=== PATIENT | male | born 1950 | race Caucasian/White ===

== ENCOUNTER 2019-02-09 17:15 | Inpatient (IN) | payer MEDICARE, MEDICAID ==
[~2019-02-09] VITALS: Ht 177.8 cm; Wt 89.8 kg
[2019-02-09] MEDS ORDERED: Magnesium 1GM/D5W 100ML PREMIX 200 ML IV ONE (17:31)
[2019-02-09 17:50] LABS: BASOPHILS # (AUTO) 0.1 /CMM (0.0-0.2); EOSINOPHILS % (AUTO) 1.7 % (0.0-6.0); HEMATOCRIT 44 % (39-51); HEMOGLOBIN 15.1 g/dL (13.5-17.5); LYMPHOCYTES # (AUTO) 2.5 /CMM (0.8-4.8); LYMPHOCYTES % (AUTO) 25.8 % (20.0-44.0); MEAN CORPUSCULAR HGB CONC 35 g/dl (31.0-36.0); MEAN CORPUSCULAR VOLUME 93 fL (80-96); MONOCYTES # (AUTO) 0.8 /CMM (0.1-1.30); MONOCYTES % (AUTO) 8.4 % (2.0-12.0); NEUTROPHILS # (AUTO) 6.1 /CMM (1.8-8.9); NEUTROPHILS % (AUTO) 63.1 % (43.0-81.0); PLATELET COUNT (AUTO) 248 /CMM (150-450); WHITE BLOOD COUNT (AUTO) 9.6 K/uL (4.3-11.0)
[2019-02-09] MEDS ORDERED: Magnesium 1GM/D5W 100ML PREMIX 100 ML IV ONE ×2 (17:50→17:53)
[2019-02-09] MEDS ORDERED: methylPREDNISolone SOD SUCC 125 MG/2ML VIAL ONE (17:51)
[2019-02-09] MEDS ORDERED: ALBUTEROL FS 2.5 MG/3 ML VIAL.NEB CONTNEB ONE ×2 (18:00→19:30)
[2019-02-09] MEDS ORDERED: ALBUTEROL FS 2.5 MG/3 ML VIAL.NEB ONE ×2 (18:00→19:32)
[2019-02-09] MEDS ORDERED: methylPREDNISolone SOD SUCC 125 MG/2ML VIAL IV ONE (18:00)
[2019-02-09] MEDS ORDERED: IPRATROPIUM NEB FS 0.5 MG/2.5 ML AMPUL.NEB NEB ONE (18:00)
[2019-02-09] MEDS ORDERED: IPRATROPIUM NEB FS 0.5 MG/2.5 ML AMPUL.NEB ONE (18:00)
[2019-02-09 18:01] LABS: CALCIUM, SERUM 9.1 mg/dL (8.5-10.1); CREATININE 1.2 mg/dL (0.6-1.3); POTASSIUM 4.2 mmol/L (3.5-5.1)
[2019-02-09 18:13] LABS: ALBUMIN 3.1 g/dL (3.4-5.0); BILIRUBIN,DIRECT 0.1 mg/dL (0.0-0.2); BILIRUBIN,TOTAL 0.3 mg/dL (0.2-1.0); TOTAL PROTEIN, SERUM 7.8 g/dL (6.4-8.2)
--- NOTE | 2019-02-09 18:24 | NUR ---
PT CAME IN C/O SOB,COUGH X4 DAYS. PT AAOX4,AMBULATORY, DENIES N/V, CONNECTED TO THE MONITOR. WILL CONTINUE TO MONITOR. PT MADE AWARE W THE PLAN OF CARE.
--- NOTE | 2019-02-09 19:06 | NUR ---
ER CENTRAL SUPPLY TECHNICIAN SPOKE TO MOSES SCHWARTZ REGARDING PT ADMISSION.
[2019-02-09] MEDS ORDERED: LEVOFLOXACIN 500 MG /D5W 100ML 100 ML IV ONE (19:25)
--- NOTE | 2019-02-09 19:28 | NUR ---
CALLED HOUSE SUP FOR [facility] BED
[2019-02-09] MEDS ORDERED: FUROSEMIDE 20 MG/2 ML VIAL IV ONE (19:30)
[2019-02-09] MEDS ORDERED: LEVOFLOXACIN 500 MG /D5W 100ML 500 MG/100 ML PIGGYBACK IV ONE (19:30)
--- NOTE | 2019-02-09 19:30 | NUR ---
Report given to ED RN for ashkan.
--- NOTE | 2019-02-09 20:00 | NUR ---
REPORT CALLED TO TELE 1 [facility]ER WILL TRANSPORT PT VIA ACLS PROTOCOL.
[2019-02-09] MEDS ORDERED: FUROSEMIDE 20 MG/2 ML VIAL ONE (20:05)
--- NOTE | 2019-02-09 20:09 | NUR ---
MOSES SCHWARTZ AT BEDSIDE TO HILDA BENAVIDES.
[2019-02-09 20:15] VITALS: BP 127/83
--- NOTE | 2019-02-09 20:15 | NUR ---
RN NOTE RECEIVED PATIENT FROM ER ON 2 L/MIN VIA NASAL CANULA, NO DISTRESS NOTED, DX COPD EXACERBATION, ON CONTINIOUS LEVAQUIN IV ATB FROM ER, NO PAIN OR DISCOMFORT NOTED, TALKED TO DAUGHTER IN LAW NARCISO, PER DAUGHTER IN LAW SHE WILL BRING MEDICATION LIST TOMORROW, LEFT AC 18 GAUGE NOTED, NO S/S OF INFECTION/INFILTRATION NOTED, SKIN IS INTACT, WILL CONTINUE TO MONITOR PATIENT
[2019-02-09] MEDS ORDERED: ACETAMINOPHEN 325 MG TABLET PO PRN (20:30)
[2019-02-09] MEDS ORDERED: MAG HYDROX/AL HYDROX/SIMETH 30 ML UDC PO PRN (20:30)
[2019-02-09] MEDS ORDERED: Z GUARD REMEDY 2 OZ OINT TP PRN (20:30)
[2019-02-09] MEDS ORDERED: HYDROCODONE/APAP 5/325MG 1 EACH TABLET PO PRN (20:30)
[2019-02-09] MEDS ORDERED: ONDANSETRON HCL/PF 4 MG/2 ML VIAL IVP PRN (20:30)
[2019-02-09] MEDS ORDERED: MAGNESIUM HYDROXIDE 30 ML UDC PO PRN (20:30)
[2019-02-09 21:07] LABS: LIPASE 134 U/L (73-393)
[2019-02-09] MEDS: ENOXAPARIN SODIUM 40 MG/0.4 ML DISP.SYRIN SQ SCH (21:21)
[2019-02-09] MEDS: IPRATROPIUM NEB FS 0.5 MG/2.5 ML AMPUL.NEB NEB SCH (21:32)
[2019-02-09] MEDS: ALBUTEROL FS 2.5 MG/0.5 ML VIAL.NEB NEB SCH (21:33)
[2019-02-10] VITALS: BP 107/68
[2019-02-10 04:00] VITALS: BP 120/77
--- NOTE | 2019-02-10 06:19 | NUR ---
RN NOTE PATIENT REFUSED TROPONIN TO BE DRAWN BY LAB, EXPLAINED ALL RISKS AND BENEFITS, STILL REFUSED
--- NOTE | 2019-02-10 07:25 | NUR ---
RN OPENING NOTES PT IS IN BED AWAKE. DENIES ANY PAIN OR SOB AT PRESENT TIME. IS ZAMBIAN SPEAKING WITH LITTLE LUX[place]BOURGISH. HOB IS ELEVATED AND CALL LIGHT WITHIN REACH OF PT. BED IS LOCKED AND IN LOWEST POSITION WITH ROOM FREE OF CLUTTER. WILL CONTINUE TO MONITOR.
[2019-02-10] MEDS: ALBUTEROL FS 2.5 MG/0.5 ML VIAL.NEB NEB SCH ×3 (07:46→19:14)
[2019-02-10] MEDS: IPRATROPIUM NEB FS 0.5 MG/2.5 ML AMPUL.NEB NEB SCH ×3 (07:46→19:14)
[2019-02-10 08:00] VITALS: BP 135/85
[2019-02-10] MEDS: methylPREDNISolone SOD SUCC 40 MG/ML VIAL IV SCH ×3 (08:39→16:56)
[2019-02-10 12:00] VITALS: BP 141/86
--- NOTE | 2019-02-10 12:39 | NUR ---
SPOKE WITH PTS DAUGHTER NARCISO ASKED IF SOMEONE FROM THE FAMILY IS ABLE TO BRING PT'S MEDICATIONS LIST. SAID SHE WILL ASK HER MOTHER TO BRING IN MEDICATIONS.
[2019-02-10] MEDS ORDERED: ALBU18HF2 IH (15:27)
[2019-02-10] MEDS ORDERED: ASPI-605 PO (15:32)
[2019-02-10] MEDS ORDERED: PREG75CA PO (15:32)
[2019-02-10] MEDS ORDERED: EMPA1TAB7 PO (15:32)
[2019-02-10] MEDS ORDERED: NEBI20TA2 PO (15:32)
[2019-02-10] MEDS ORDERED: LINA145C PO (15:32)
[2019-02-10] MEDS ORDERED: IBUP-1953 PO (15:32)
[2019-02-10] MEDS ORDERED: FENO145T35 PO (15:32)
[2019-02-10] MEDS ORDERED: LOSA1TAB15 PO (15:32)
[2019-02-10] MEDS ORDERED: CLOP75TA15 PO (15:32)
[2019-02-10] MEDS ORDERED: PANT40TA4 PO (15:32)
--- NOTE | 2019-02-10 15:43 | NUR ---
BROUGHT PT'S MEDICATION [facility] NURSE WAS NOTIFIED.
[2019-02-10 16:00] VITALS: BP 146/88
[2019-02-10 16:33] LABS: BASOPHILS % (AUTO) 0.2 % (0.0-2.0); HEMATOCRIT 43 % (39-51); HEMOGLOBIN 14.5 g/dL (13.5-17.5); LYMPHOCYTES # (AUTO) 0.9 /CMM (0.8-4.8); LYMPHOCYTES % (AUTO) 8.7 % (20.0-44.0); MEAN CORPUSCULAR HGB CONC 34 g/dl (31.0-36.0); MEAN CORPUSCULAR VOLUME 94 fL (80-96); MONOCYTES # (AUTO) 0.3 /CMM (0.1-1.30); MONOCYTES % (AUTO) 2.6 % (2.0-12.0); NEUTROPHILS # (AUTO) 9.4 /CMM (1.8-8.9); NEUTROPHILS % (AUTO) 88.5 % (43.0-81.0); PLATELET COUNT (AUTO) 283 /CMM (150-450); RED BLOOD CELL COUNT(AUTO) 4.58 MIL/uL (4.5-6.0); WHITE BLOOD COUNT (AUTO) 10.6 K/uL (4.3-11.0)
[2019-02-10 16:58] LABS: THYROID STIMULATING HORMONE 0.401 uIU/mL (0.358-3.74)
[2019-02-10 17:04] LABS: BILIRUBIN,DIRECT 0.1 mg/dL (0.0-0.2); BILIRUBIN,TOTAL 0.4 mg/dL (0.2-1.0); CALCIUM, SERUM 9.5 mg/dL (8.5-10.1); CREATININE 1.3 mg/dL (0.6-1.3); MAGNESIUM 1.8 mg/dL (1.8-2.4); PHOSPHORUS 2.1 mg/dL (2.5-4.9); POTASSIUM 4.6 mmol/L (3.5-5.1); TOTAL PROTEIN, SERUM 7.9 g/dL (6.4-8.2)
--- NOTE | 2019-02-10 17:29 | NUR ---
CRITICAL LAB VALUES RECEIVED FROM LAB AND GIVEN TO DR. MIGUEL. ORDERS RECEIVED AND CARRIED OUT.
[2019-02-10] MEDS ORDERED: DEXTROSE 50%-WATER 50 ML DISP.SYRIN IV PRN (17:30)
[2019-02-10] MEDS: BLOOD SUGAR DIAGNOSTIC 1 EACH STRIP IN SCH ×2 (17:31→20:25)
[2019-02-10] MEDS: INSULIN REGULAR, HUMAN 100 UNIT/ML 3 ML VIAL SQ PRN ×2 (18:10→21:25)
--- NOTE | 2019-02-10 19:29 | NUR ---
RN CLOSING NOTES PT FAMILY AT BEDSIDE. PT DENIES PAIN OR SOB AT PRESENT MOMENT. PT IS ABLE TO AMBULATE TO RESTROOM. PT 2 L O2 NC ON AND IN POSITION. REPORT GIVEN TO SEWAGE SCREEN OPERATOR RN FOR CONTINUATION OF CARE. BED IS LOCKED AND IN LOWEST POSITION WITH CALL LIGHT IN REACH.
--- NOTE | 2019-02-10 19:38 | NUR ---
GIS DEVELOPER NOTES RECEIVED PT ON BED. A/O X 4. FAMILY AT BEDSIDE. ON NASAL CANNULA 2LPM NO RESPIRATORY DISTRESS NOTED. IV ACCESS ON LAC G18 SALINE LOCK. ON TELE MONITOR ST 120. HEAD OF BED ELEVATED. SIDE RAILS UP. CALL LIGHT WITHIN REACH. BED ALARM ON. WILL CONTINUE TO MONITOR PT CLOSELY.
[2019-02-10 20:00] VITALS: BP 158/90
[2019-02-10] MEDS: LEVOFLOXACIN 500 MG /D5W 100ML 500 MG in PREMIX 1 EA IV SCH ×2 (20:18→20:35)
[2019-02-10] MEDS: ENOXAPARIN SODIUM 40 MG/0.4 ML DISP.SYRIN SQ SCH (20:19)
--- NOTE | 2019-02-10 20:33 | NUR ---
AUTO BODY MECHANIC NOTES PT BLOOD SUGAR HI READING. NO COMPLAINTS OF NAUSEA, NO VOMITING, AND NO DIZZINESS. V/S WNL. WILL MONITOR PT CLOSELY.
--- NOTE | 2019-02-10 20:33 | NUR ---
FLEXO PRESS OPERATOR NOTES CALLED LAB FOR STAT ORDER OF GLUCOSE CHECK.
--- NOTE | 2019-02-10 20:57 | NUR ---
HEADING MAKER NOTES PAGED EPIC RESERVOIR ENGINEERING CONSULTANT. PER MOSES CALVERT. WAIT FOR THE GLUCOSE RESULT FROM LAB AND GIVE INSULIN PER PROTOCOL. WILL MONITOR PT CLOSELY.
[2019-02-11] VITALS: BP 138/90
[2019-02-11] MEDS: BLOOD SUGAR DIAGNOSTIC 1 EACH STRIP IN SCH ×3 (00:19→08:49)
[2019-02-11] MEDS: INSULIN REGULAR, HUMAN 100 UNIT/ML 3 ML VIAL SQ PRN ×3 (00:21→08:49)
--- NOTE | 2019-02-11 01:15 | NUR ---
FILM AND VIDEO EDITOR NOTES PT REFUSING TELE MONITOR. CHARGE NURSE AND NEURO PSYCH SALES SPECIALIST DR BROWN.
[2019-02-11 04:00] VITALS: BP 143/88
[2019-02-11 07:16] LABS: BASOPHILS % (AUTO) 0.3 % (0.0-2.0); HEMATOCRIT 42 % (39-51); HEMOGLOBIN 14.1 g/dL (13.5-17.5); LYMPHOCYTES # (AUTO) 1.9 /CMM (0.8-4.8); LYMPHOCYTES % (AUTO) 12.3 % (20.0-44.0); MEAN CORPUSCULAR HGB CONC 34 g/dl (31.0-36.0); MEAN CORPUSCULAR VOLUME 94 fL (80-96); MONOCYTES # (AUTO) 0.8 /CMM (0.1-1.30); MONOCYTES % (AUTO) 5.6 % (2.0-12.0); NEUTROPHILS # (AUTO) 12.3 /CMM (1.8-8.9); NEUTROPHILS % (AUTO) 81.8 % (43.0-81.0); PLATELET COUNT (AUTO) 301 /CMM (150-450); RED BLOOD CELL COUNT(AUTO) 4.47 MIL/uL (4.5-6.0); WHITE BLOOD COUNT (AUTO) 15.1 K/uL (4.3-11.0)
--- NOTE | 2019-02-11 07:16 | NUR ---
COMMUNITY ENGAGEMENT MANAGER NOTES NO ACUTE CHANGES NOTED DURING THE SHIFT. NO RESPIRATORY DISTRESS NOTED. WILL ENDORSE TO THE AM NURSE FOR CONTINUITY OF CARE.
[2019-02-11 07:34] LABS: CALCIUM, SERUM 9.5 mg/dL (8.5-10.1); CREATININE 1.1 mg/dL (0.6-1.3); MAGNESIUM 1.9 mg/dL (1.8-2.4); PHOSPHORUS 3.7 mg/dL (2.5-4.9); POTASSIUM 3.9 mmol/L (3.5-5.1)
--- NOTE | 2019-02-11 07:59 | NUR ---
WINDLASSER NOTE PATIENT IN BED ,ALERT ORIENTED ,STILL REFUSING TO PLACE TELE MONITOR . PT 2 L O2 NC ,NOTED WITH DRY COUGH NOTED AT THIS TIME , RT CALLED TO DO BREATHING TX BED IS LOCKED AND IN LOWEST POSITION WITH CALL LIGHT IN REACH. LAC HL INTACT NO S\S INFECTION NOTED ,WILL CONT TO MONITOR CLOSELY ,
[2019-02-11 08:00] VITALS: BP 115/75
[2019-02-11] MEDS: IPRATROPIUM NEB FS 0.5 MG/2.5 ML AMPUL.NEB NEB SCH (08:14)
[2019-02-11] MEDS: ALBUTEROL FS 2.5 MG/0.5 ML VIAL.NEB NEB SCH (08:14)
[2019-02-11] MEDS: methylPREDNISolone SOD SUCC 40 MG/ML VIAL IV SCH (08:45)
--- NOTE | 2019-02-11 08:54 | NUR ---
MS RN NOTE SEEN BY ASSEMBLER CAMPER AWARE THAT PATIENT STILL HAS DRY COUGH, BY RT BREATHINCT X DONE ,WILL F\U
[2019-02-11] MEDS ORDERED: ASPIRIN EC 81 MG TABLET.DR PO SCH (09:00)
[2019-02-11] MEDS ORDERED: CLOPIDOGREL BISULFATE 75 MG TABLET PO SCH (09:00)
[2019-02-11] MEDS ORDERED: LOSARTAN POTASSIUM 50 MG TABLET PO SCH (09:00)
[2019-02-11] MEDS ORDERED: AZIT250T13 PO (10:40)
[2019-02-11] MEDS ORDERED: PRED20TA PO (10:40)
--- NOTE | 2019-02-11 10:42 | NUR ---
radiotelephone technical operator note seen by dr kayley ingram, ekg done as ordered
[2019-02-11 12:00] VITALS: BP 115/75
--- NOTE | 2019-02-11 12:51 | NUR ---
QA LEAD NOTE DISCHARGE INSTRUCTION GIVEN, UNDERSTOOD, HL REMOVED, NO BLEEDING NOTED ,DRY DRESSING APPLIED , INSTRUCTED HOW TO TAKE NEW PX AND HOME MEDS WITH POSSIBLE SIDE EFFECTS , INSTRUCTED TO F\U WITH PRIMARY CARE DOCTOR NEXT WEEK , BELONGING SIGNED,TAKEN TO LOBBY WITH STABLE CONDITION, IS AWAITING IN PARKING LOT ,FAMILY RECEIVED CALLED FROM PHARMACY TI AUTO BODY PAINTER NEW PX PER PATIENT STATEMENT
== END 2019-02-11 13:10 | disposition home or self-care (01) | DRG 190 ==
LOC: ER 17:19 → TELE-TD 19:46 → TELE1 21:10
PROVIDERS: ADMIT Nurse Practitioner Acute Care; ATTEND Nurse Practitioner Acute Care
DX: J44.1 Chronic obstructive pulmonary disease with (acute) exacerbation (principal); J96.01 Acute respiratory failure with hypoxia; J45.901 Unspecified asthma with (acute) exacerbation; K56.7 Ileus, unspecified; E78.5 Hyperlipidemia, unspecified; R74.0 Nonspecific elevation of levels of transaminase and lactic acid dehydrogenase [LDH]; F17.210 Nicotine dependence, cigarettes, uncomplicated; I10 Essential (primary) hypertension; I25.10 Atherosclerotic heart disease of native coronary artery without angina pectoris; Z79.82 Long term (current) use of aspirin; Z95.5 Presence of coronary angioplasty implant and graft; J20.8 Acute bronchitis due to other specified organisms; R07.89 Other chest pain; D72.829 Elevated white blood cell count, unspecified; E11.65 Type 2 diabetes mellitus with hyperglycemia; N40.0 Benign prostatic hyperplasia without lower urinary tract symptoms; I45.10 Unspecified right bundle-branch block; Z79.84 Long term (current) use of oral hypoglycemic drugs; J44.0 Chronic obstructive pulmonary disease with (acute) lower respiratory infection
CPT/HCPCS: 36415; 71045-TC; 74018; 76705-TC; 80048-TC; 80061-TC; 80076-TC; 82947-TC; 82962-TC; 83605-TC; 83690-TC; 83735-TC; 83880; 84100-TC; 84443-TC; 84484-TC; 85025-TC; 85610-TC; 85730-TC; 87040-TC; 87081-TC; 94799-TC; A4216; G0378; J1650; J1815; J1940; J1956; J2920; J2930; J3475; J7030; J7050